=== PATIENT | female | born 1950 | race Caucasian/White ===

== ENCOUNTER 2019-06-30 10:22 | Emergency (ER) | payer BC ==
--- NOTE | 2019-06-30 10:59 | UC ---
Skin Complaint HPI - HPI Summary HPI Summary: Patient is a 68-year-old female presenting with tick bite to right ankle has become increasingly red and warm since she was on Friday. States she was bitten on Friday and removed it on Friday. She has had tick bites in the past but none of them have reacted like this before. Notes tenderness of the area. Denies drainage or bleeding. Denies fever, chills, nausea, vomiting. - History of Current Complaint Chief Complaint: UCGeneralIllness Stated Complaint: TICK BITE Hx Obtained From: Patient Onset/Duration: Gradual Onset, Lasting Days Pain Intensity: 0 - Allergy/Home Medications Allergies/Adverse Reactions: Allergies Allergy/AdvReac Type Severity Reaction Status Date / Time No Known Allergies Allergy Verified 06/30/19 10:50 Home Medications: Home Medications Cholecalciferol TAB* [Vitamin D TAB*] 2,000 units PO DAILY 06/30/19 [History Confirmed 06/30/19] Denosumab [Prolia] 60 mg .SEE ORDER ONCE 06/30/19 [History Confirmed 06/30/19] PMH/Surg Hx/FS Hx/Imm Hx Previously Healthy: Yes - Surgical History Surgical History: Yes Surgery Procedure, Year, and Place: tonsillectomy. appendectomy - Family History Known Family History: Positive: Other - NONCONTRIBUTORY - Social History Alcohol Use: None Substance Use Type: None Smoking Status (MU): Never Smoked Tobacco Review of Systems All Other Systems Reviewed And Are Negative: Yes Constitutional: Positive: Negative. Negative: Fever, Chills Skin: Positive: Other - tick bite and redness of right ankle Respiratory: Positive: Negative Cardiovascular: Positive: Negative Gastrointestinal: Positive: Negative Musculoskeletal: Positive: Negative Neurological: Positive: Negative Physical Exam Triage Information Reviewed: Yes Appearance: Well-Appearing, No Pain Distress, Well-Nourished Vital Signs: Initial Vital Signs Temp 98.2 F 06/30/19 10:52 Pulse 86 06/30/19 10:52 Resp 16 06/30/19 10:52 BP 136/86 06/30/19 10:52 Pulse Ox 100 06/30/19 10:52 Vital Signs Reviewed: Yes Eyes: Positive: Conjunctiva Clear ENT: Positive: Hearing grossly normal Neck: Positive: Supple Respiratory: Positive: No respiratory distress Cardiovascular: Positive: Pulses Normal, Brisk Capillary Refill Musculoskeletal Exam: Normal Musculoskeletal: Positive: Strength Intact, ROM Intact, No Edema Neurological: Positive: Alert Psychological: Positive: Age Appropriate Behavior Skin Exam: Other - 1 cm area noted on medial right ankle tick was attached surrounded by erythema extending to heel Course/Dx - Course Course Of Treatment: Discussed cellulitis signs and symptoms versus Lyme disease signs or symptoms with patient. I am treating her with Keflex for cellulitis. Instructed her to return to the emergency room if she experiences fever, chills, increasing redness and warmth, or drainage. Patient voiced understanding and agreed with the treatment plan. - Diagnoses Provider Diagnosis: Cellulitis of right ankle Discharge ED - Sign-Out/Discharge Documenting (check all that apply): Patient Departure All imaging exams completed and their final reports reviewed: No Studies - Discharge Plan Condition: Stable Disposition: HOME Prescriptions: Cephalexin CAP* [Keflex CAP*] 500 mg PO TID #21 cap Patient Education Materials: Cellulitis (ED), Tick Bite (ED) Referrals: [facility] [Outside] - If Needed [facility]FERR[facility] [Outside] - If Needed Additional Instructions: Take Keflex as prescribed for your skin infection. You may take ibuprofen for pain relief. Follow up with the [facility] or the Physician Referral if within the next month you experience weakness, severe headache, or a rash where you were the tick bit you. Go to the emergency room if you experience increasing redness, warmth, or drainage of the area. - Billing Disposition and Condition Condition: STABLE Disposition: Home
== END 2019-06-30 11:18 | disposition home or self-care (01) ==
LOC: UCEAST 10:22
DX: L03.115 Cellulitis of right lower limb (principal); S90.561A Insect bite (nonvenomous), right ankle, initial encounter; W57.XXXA Bitten or stung by nonvenomous insect and other nonvenomous arthropods, initial encounter; Y92.9 Unspecified place or not applicable
CPT/HCPCS: 99202; G0463